=== PATIENT | male | born 1955 | race Two or more races ===

== ENCOUNTER 2021-10-20 12:14 | Emergency (ER) | payer OTHER ==
[~2021-10-20] VITALS: Ht 190.5 cm; Wt 76.2 kg
== END 2021-10-20 15:22 | disposition home or self-care (01) ==
LOC: ER 12:14
DX: S79.912A Unspecified injury of left hip, initial encounter (principal); W07.XXXA Fall from chair, initial encounter; Y93.9 Activity, unspecified; Y92.9 Unspecified place or not applicable